=== PATIENT | female | born 1970 | race Caucasian/White ===

== ENCOUNTER → 2018-02-21 | Outpatient (CLI) | payer BC | END | disposition home or self-care (01) | LOC: CFH 13:54 | PROVIDERS: ATTEND Obstetrics & Gynecology | DX: N63.11 Unspecified lump in the right breast, upper outer quadrant (principal); N64.4 Mastodynia | CPT/HCPCS: 76642; 77066 ==

== ENCOUNTER → 2018-02-24 | Outpatient (CLI) | payer BC ==
[~2018-02-24] MED LIST: LIDOCAINE 1%-EPI 1:100K, 20ML ONE; SODIUM BICARBONATE 4.0%, 5ML ONE
== END | disposition home or self-care (01) ==
LOC: CFH 07:09
PROVIDERS: ATTEND Obstetrics & Gynecology
DX: D24.1 Benign neoplasm of right breast (principal); N60.12 Diffuse cystic mastopathy of left breast
CPT/HCPCS: 19083; 77066; 88305; J3490

== ENCOUNTER → 2018-04-06 | Outpatient (CLI) | payer BC ==
[~2018-04-06] MED LIST changes: -LIDOCAINE 1%-EPI 1:100K, 20ML ONE; +NONE PER PT; -SODIUM BICARBONATE 4.0%, 5ML ONE
== END | disposition home or self-care (01) ==
LOC: STAR 14:48
PROVIDERS: ATTEND Surgery
DX: Z02.9 Encounter for administrative examinations, unspecified (principal)

== ENCOUNTER 2018-04-10 07:58 | Day surgery (SDC) | payer BC ==
[~2018-04-10] VITALS: Ht 165.1 cm; Wt 68.2 kg
[2018-04-10] MEDS ORDERED: BUPIVACAINE/PF-EPI 0.5% 1:200K ONE (08:01)
[2018-04-10] MEDS ORDERED: LACTATED RINGERS 1,000 ML IV SCH (08:19)
[2018-04-10 08:37] VITALS: BP 99/54
[2018-04-10] MEDS ORDERED: FENTANYL PF 100 MCG/2ML ONE ×2 (09:10→10:17)
[2018-04-10] MEDS ORDERED: PROPOFOL 50 ML ONE (09:10)
[2018-04-10] MEDS ORDERED: MIDAZOLAM 1 MG/ML, 2ML ONE (09:16)
[2018-04-10] MEDS ORDERED: CEFAZOLIN 1,000 MG ONE (09:21)
[2018-04-10] MEDS ORDERED: DEXAMETHASONE 4 MG/ML, 1ML ONE (09:40)
[2018-04-10] MEDS ORDERED: ONDANSETRON 2MG/ML, 2ML ONE (09:40)
[2018-04-10] MEDS ORDERED: EPHEDRINE 50 MG/ML, 1ML IVPush PRN (10:00)
[2018-04-10] MEDS ORDERED: LABETALOL 5MG/ML, 20ML IV PRN (10:00)
[2018-04-10] MEDS ORDERED: PROMETHAZINE 25 MG SUPP PR PRN (10:00)
[2018-04-10] MEDS ORDERED: DIPHENHYDRAMINE 50 MG/ML, 1ML IVPush PRN (10:00)
[2018-04-10] MEDS ORDERED: EPHEDRINE 50 MG/ML, 1ML IM PRN (10:00)
[2018-04-10] MEDS ORDERED: ONDANSETRON ODT 8 MG PO PRN (10:00)
[2018-04-10] MEDS ORDERED: FENTANYL PF 100 MCG/2ML IV PRN (10:00)
[2018-04-10] MEDS ORDERED: PROMETHAZINE 25 MG/ML, 1ML IV PRN (10:00)
[2018-04-10] MEDS ORDERED: ACETAMINOPHEN 325 MG TABLET PO PRN (10:00)
[2018-04-10] MEDS ORDERED: MIDAZOLAM 1 MG/ML, 2ML IV PRN (10:00)
[2018-04-10] MEDS ORDERED: MEPERIDINE/PF 25MG/0.5ML IVPush PRN (10:00)
[2018-04-10] MEDS ORDERED: OXYcodone 5 MG/5 ML ORAL.SOL UDC PO PRN (10:00)
[2018-04-10] MEDS ORDERED: PROMETHAZINE 12.5 MG SUPP PR PRN (10:00)
[2018-04-10] MEDS ORDERED: MORPHINE SULFATE 4 MG/ML, 1ML IVPush PRN (10:00)
[2018-04-10] MEDS ORDERED: ONDANSETRON 2MG/ML, 2ML IV PRN (10:00)
[2018-04-10] MEDS ORDERED: OXYcodone 5 MG/5 ML ORAL.SOL UDC ONE (10:17)
== END 2018-04-10 12:50 | disposition home or self-care (01) ==
LOC: OUT 07:58
PROVIDERS: ATTEND Surgery
DX: D24.1 Benign neoplasm of right breast (principal); Z90.710 Acquired absence of both cervix and uterus; Z98.890 Other specified postprocedural states
CPT/HCPCS: 19120; 88307; J0690; J1100; J2250; J2405; J2704; J7120; J3010